=== PATIENT | female | born 1980 | race Caucasian/White ===

== ENCOUNTER 2020-02-08 14:31 | Emergency (ER) | payer OTHER, SELFPAY ==
--- NOTE | ~2020-02-08 | CT_ITS ---
EXAMINATION: CT lumbar spine wo [facility] EXAM DATE: 02/08/2020 16:13 INDICATION: Low back pain. No known recent injury. TECHNIQUE: Spiral CT of the lumbar spine was performed without contrast. Axial, coronal and sagittal images were reviewed. The dose-length product (DLP) for this examination was 812.50 mGy-cm. The e xposure was tailored according to patient size (auto mA exposure control), and iterative reconstructi on (ASIR) was used as additional dose reduction technique. There is no prior study for comparison. FINDINGS: There is mild to moderate disc disease at L4-5, mild at L3-4 and L5-S1. There is no spondyl olysis. There are no acute fractures identified. Paraspinal soft tissue is unremarkable. No endplate erosive change. The vertebral bodies are aligned in the AP dimension. Level by level evaluation: T12-L1: Disc does not extend beyond the endplate margin. Facet arthropathy: None. Neural foraminal stenosis: No stenosis. Central canal stenosis: No stenosis. L1-L2: Disc does not extend beyond the endplate margin. Facet arthropathy: None. Neural foraminal stenosis: No stenosis. Central canal stenosis: No stenosis. L2-L3: There is a minimal diffuse disc bulge. Facet arthropathy: Mild. Neural foraminal stenosis: No stenosis. Central canal stenosis: No stenosis. L3-L4: There is a mild diffuse disc bulge. Facet arthropathy: Mild. Neural foraminal stenosis: Minimal bilateral. Central canal stenosis: Mild to moderate. L4-L5: There is a moderate diffuse disc bulge. Facet arthropathy: Moderate. Neural foraminal stenosis: Mild to moderate bilateral. Central canal stenosis: Moderate to severe. L5-S1: There is a mild diffuse disc bulge. Facet arthropathy: Mild. Neural foraminal stenosis: Mild bilateral. Central canal stenosis: Mild. IMPRESSION: 1. L4-5 moderate to severe central canal stenosis. 2. Otherwise mild lumbar spondylosis. 3. No acute findings. Reviewed, dictated and finalized at location A.
[2020-02-08 14:35] VITALS: BP 137/53; PULSE 86; RESP 30; TEMP 36.2; O2SAT 100
--- NOTE | 2020-02-08 15:04 | ED.BACK ---
HPI - Back Pain/Injury General Chief Complaint: Back Pain/Injury <Alix Sinclair PA-C - Last Filed: 02/08/20 17:25> Stated Complaint: back pain <Alix Sinclair PA-C - Last Filed: 02/08/20 17:25> Time Seen by Provider: 02/08/20 14:38 <Alix Sinclair PA-C - Last Filed: 02/08/20 17:25> Source: patient <Alix Sinclair PA-C - Last Filed: 02/08/20 17:25> Mode of arrival: wheelchair <Alix Sinclair PA-C - Last Filed: 02/08/20 17:25> Limitations: no limitations <Alix Sinclair PA-C - Last Filed: 02/08/20 17:25> History of Present Illness HPI Narrative: This is a 39 year old female that presents to the ER for acute on chronic low back pain. Reports history of low back pain. Reports a flare starting 2 days ago. No new injury or trauma. Reports pain radiates down her legs. Reports tingling in her legs that has been present for years. Denies fever, saddle anesthesia or bowel/bladder incontinence. <Alix Sinclair PA-C - Last Filed: 02/08/20 17:25> Related Data Allergies/Adverse Reactions: Allergies Allergy/AdvReac Type Severity Reaction Status Date / Time Sulfa (Sulfonamide Allergy Unknown Unknown Verified 02/08/20 14:37 Antibiotics) <Alix Sinclair PA-C - Last Filed: 02/08/20 17:25> Review of Systems Review of Systems: Narrative: CONSTITUTIONAL: Denies fever SKIN: Denies rash MUSCULOSKELETAL: Reports back pain, joint pain, and myalgia. NEUROLOGIC: Denies numbness, or weakness. <Alix Sinclair PA-C - Last Filed: 02/08/20 17:25> All systems reviewed & are unremarkable except as noted in HPI and below <Alix Sinclair PA-C - Last Filed: 02/08/20 17:25> PMFSH Surgical History Surgical History: Surgical History (Updated 02/08/20 @ 15:04 by Alix Sinclair PA-C) History of tubal ligation <Alix Sinclair PA-C - Last Filed: 02/08/20 17:25> Social History Social History: Social History (Updated 02/08/20 @ 15:04 by Alix Sinclair PA-C) Smoking status: Current every day smoker Substance use type: marijuana Gender identity (if verbalized by the patient): Female <Alix Sinclair PA-C - Last Filed: 02/08/20 17:25> Exam Narrative: Exam Narrative: GENERAL: Well-appearing, well-nourished, and in no acute distress. HEAD: Normocephalic, atraumatic. EYES: EOMI. CHEST: Clear to auscultation. No respiratory distress. No wheezes rales or rhonchi HEART: Regular rate and rhythm. No murmur heard. Normal peripheral pulses. BACK: Tender to palpation of lumbar paraspinal musculature EXTREMITIES: Normal range of motion. No edema. Strength equal in bilateral lower extremities. Normal gait SKIN: Warm, dry, no rash. NEURO: No focal deficits. Alert and oriented x3. PSYCH: Normal mood and affect <Alix Sinclair PA-C - Last Filed: 02/08/20 17:25> Course Vital Signs Vital signs: Vital Signs Temperature 36.2 C L 02/08/20 14:35 Pulse Rate 86 02/08/20 14:35 Respiratory Rate 30 H 02/08/20 14:35 Blood Pressure 137/53 L 02/08/20 14:35 Pulse Oximetry 100 02/08/20 14:35 Temperature 36.2 C L 02/08/20 17:37 Pulse Rate 63 02/08/20 17:37 Respiratory Rate 18 02/08/20 17:37 Blood Pressure 113/67 02/08/20 17:37 Pulse Oximetry 100 02/08/20 17:37 <Alix Sinclair PA-C - Last Filed: 02/08/20 17:25> Vital Signs Temperature 36.2 C L 02/08/20 14:35 Pulse Rate 86 02/08/20 14:35 Respiratory Rate 30 H 02/08/20 14:35 Blood Pressure 137/53 L 02/08/20 14:35 Pulse Oximetry 100 02/08/20 14:35 Temperature 36.2 C L 02/08/20 17:37 Pulse Rate 63 02/08/20 17:37 Respiratory Rate 18 02/08/20 17:37 Blood Pressure 113/67 02/08/20 17:37 Pulse Oximetry 100 02/08/20 17:37 <Gaby Mccall MD - Last Filed: 02/10/20 13:55> MDM - Back Pain/Injury MDM Narrative Medical decision making narrative: Patient presents the emergency department for low back pain x2 days. Reports a history of chronic l
[2020-02-08 15:09] VITALS: BP 126/108; PULSE 76; RESP 18; O2SAT 99
[2020-02-08] MEDS: KETOROLAC 30 MG/ML VIAL (*BKC) IV PUSH (15:11)
[2020-02-08 15:27] LABS: Basophils Percent Auto 0.3 % (0.2-1.2); Eosinophils Absolute Auto 0.2 K/mm3 (0-0.3); Eosinophils Percent Auto 1.8 % (0-4.4); Hematocrit 49.8 % (37.0-47.0); Hemoglobin 16.6 g/dL (12.0-15.0); Immature Granulocyte Absolute 0.03 K/mm3 (0.00-0.031); Immature Granulocyte Percent A 0.3 % (0-0.5); Lymphocytes Absolute Auto 3.15 K/mm3 (0.9-3.2); Mean Corpuscular HGB Conc 33.3 g/dl (32-36); Mean Corpuscular Hemoglobin 31.8 pg (26-34); Mean Corpuscular Volume 95.4 fl (80-100); Mean Platelet Volume 10.3 fl (7.4-10.4); Monocytes Absolute Auto 0.6 K/mm3 (0.1-0.6); Monocytes Percent Auto 6.3 % (2.6-8.5); Neutrophils Absolute Auto 5.1 K/mm3 (1.3-6.7); Neutrophils Percent Auto 56.3 % (45.5-73.1); Platelet Count Result 260 k/mm3 (150-375); Red Blood Count 5.22 M/mm3 (4.2-5.4); Red Cell Distribution Width 13.1 % (11.5-14.5)
[2020-02-08 15:28] LABS: Blood Urea Nitrogen 12 mg/dL (7-17); Calcium 9.8 mg/dL (8.4-10.2); Carbon Dioxide 26 mmol/L (22-30); Chloride 104 mmol/L (98-107); Estimated CRCL calculation 134 ml/min; Estimated Glomerular Filt Rate > 60; Glucose 95 mg/dL (65-105); Potassium 3.6 mmol/L (3.4-5.0); Sodium 139 mmol/L (137-145)
[2020-02-08 15:29] LABS: Add Urine Microscopic? NO; Appearance Urine Clear (Clear); Bilirubin Urine Negative (Negative); Blood Urine Negative (Negative); Color Urine Yellow (Yellow); Glucose Urine UA Negative (Negative); Ketones Urine Negative (Negative); Leukocyte Esterase Ur Negative LEU/UL (Negative); Nitrate Urine Negative (Negative); Protein Urine Negative (Negative); Urobilinogen Urine Negative mg/dL (<2.0)
[2020-02-08 15:40] VITALS: TEMP 36.2
[2020-02-08 16:00] LABS: CRP 0.5 mg/dL (<1.0)
[2020-02-08 16:57] VITALS: BP 111/71; PULSE 78; RESP 18; O2SAT 96
[2020-02-08 17:37] VITALS: BP 113/67; PULSE 63; RESP 18; TEMP 36.2; O2SAT 100
== END 2020-02-08 17:46 | disposition home or self-care (01) ==
PROVIDERS: Physician Assistant; Emergency Provider Emergency Medicine
DX: M54.16 Radiculopathy, lumbar region (principal); M47.816 Spondylosis without myelopathy or radiculopathy, lumbar region; M48.061 Spinal stenosis, lumbar region without neurogenic claudication; F17.210 Nicotine dependence, cigarettes, uncomplicated
CPT/HCPCS: 36415; 72131; 80048; 81003; 81025; 85025; 86140; 96374; 96375; 99284; A9270; J1885; J3360

== ENCOUNTER 2023-12-19 12:02 | Outpatient (RCR) | payer MEDICAID, SELFPAY ==
--- NOTE | 2023-12-19 13:31 | OPREHPOC ---
Outpatient Therapy Plan of Care This is a Multidisciplinary Plan of Care that may contain components documented by all disciplines (PT, OT, and ST.) PT Problem 1 PT Problem #1 Knowledge Deficit PT Goal 1 Goal *indep with HEP * correct body mechanics with exercises and lifting from floor PT Problem 2 PT Problem #2 Pain PT Goal 1 Goal 1* pt report pain at worst for hips and knees 6/10 2* LE functional scale rating of 40% limitation 3* pt report with sleeping, awaken due to pain 3x/ night PT Problem 3 PT Problem #3 Impaired Strength PT Goal 1 Goal increase strength of trunk and hips to stabilize spine and improve posture 1* 20 reps of mat exercises 2* 15 reps of sitting ball exercises with good stability 3* lifting with bilateral UE, 15# box from waist/ floor height 3x PT Problem 4 PT Problem #4 Impaired Flexibility PT Goal 1 Goal improve anterior hip/quad length to decrease pull on lumbar spine: prone knee flexion to 130' 1* R 2* L
--- NOTE | 2023-12-19 13:31 | PTOPEVAL1 ---
Assessment and note entered by Kayleen Buck, PT Evaluation Information Assessment Status Evaluation Diagnosis bilateral chronic knee pain,bilateral patellofemoral pain,OA hips Onset few years Subjective Information gradual increase in pain in hips and knees over the past few years; no recent trauma or injury to back, hips, knees; dr wanted to do knee injections, but pt does not want them. history included chronic hip and knee pain since teenager, back surgery in 2019; had xrays of back, knees, hips-- at another facility; pt did not know results of them; had PT in past for hips and back, prior to surgery ; nothing helped; Activity: work at [email or web address] and [employer]; limited lifting and squatting due to knee and back pain- family have to help do; hurt all the time when move Reported Pain Level Pain Score 8: Self Report Additional Pain Score Comments pain range 7-8/10; both hips and both knees; L knee hurts and swells more than R knee; L knee pain over patella- entire aspect and swells though out entire patella; R knee pain over patella also but not swollen; R and L anterior and lateral hip in the sockets and pops all the time move them increase pain: up on feet ~ 1 hour; sitting sometimes hurts, lie in bed on side R/L decrease pain: change positions, heat, ice, aleve sleeping awaken due to pain 4-5 x/ night Assessment PT Clinical Summary Olive has 2 orders [address]; discussed with her starting with one and completing treatment, then begin the other. She wants to start with her hip and knee pain bilateral. Her history includes chronic back, hip and knee pain bilateral and lumbar surgery in 2019. She works and remains active, with increased pain. Self assessment LE functional score of 55% limitation in activity level. Sleeping, activity and walking tolerances are limited due to pain.
--- NOTE | 2023-12-26 15:54 | PTOPDC ---
Assessment and note entered by Kayleen Buck, PT Evaluation Information Assessment Status Discharge - Pt Not Present Diagnosis bilateral chronic knee pain,bilateral patellofemoral pain,OA hips Onset few years Assessment PT Clinical Summary Olive received the PT evaluation on 12-19-23. She then called and canceled all of her appointments. Discharge PT per pt request. The goals were not met. Plan of Care PT Services Indicated No
== END 2023-12-26 16:36 | disposition home or self-care (01) ==
LOC: ANHPT 12:02
PROVIDERS: Visit Provider Physician Assistant
DX: M25.561 Pain in right knee (principal); M25.562 Pain in left knee; M22.2X1 Patellofemoral disorders, right knee; M22.2X2 Patellofemoral disorders, left knee; M16.2 Bilateral osteoarthritis resulting from hip dysplasia; G89.29 Other chronic pain
CPT/HCPCS: 97110; 97162; 97530